=== PATIENT | female | born 1975 | race Caucasian/White ===

== ENCOUNTER 2022-09-28 02:50 | Emergency (ER) | payer OTHER, MEDICAID, SELFPAY ==
[2022-09-28 02:58] VITALS: BP 113/72; PULSE 76; RESP 20; TEMP 36.6; O2SAT 96; BMI 39.2
--- NOTE | 2022-09-28 03:06 | ED.GENADULT ---
HPI - General Adult General Chief complaint: Lower Extremity Swelling Stated complaint: swelling/pain right leg Time Seen by Provider: 09/28/22 03:06 History of Present Illness HPI narrative: 1630 yesterday bent down and pain in R knee, states swollen . tylenol and ice and rest, no improvement woke up in severe pain and came in. states now cramping in quad and [place] area, states worse to lay down. hx gastric bypass - states no ibuprofen. 46-year-old woman here with complaint of right leg pain and cramping. It sounds as though had flexed the right knee at some point yesterday with sudden onset of pain which has continued. To to experience some cramping in the surrounding musculature. Any movement hurts. Has tried acetaminophen icing without relief. She does not take ibuprofen or some due to history of gastric bypass. No pain radiating from the back. Later does recount a history of bilateral knee lateral release. Related Data Home Medications Medication Instructions Recorded Confirmed atorvastatin .ROUTE 09/28/22 citalopram .ROUTE 09/28/22 Allergies Allergy/AdvReac Type Severity Reaction Status Date / Time cephalexin [From Keflex] AdvReac Verified 09/28/22 03:01 Review of Systems Status of ROS: Reports: 6 or more systems reviewed and unremarkable except as noted in History and below PFSH PFS Surgical History (Updated 09/28/22 @ 03:02 by Genevieve Hart RN) History of gastric bypass ?Z98.84 - Bariatric surgery status (ICD-10) Social History Smoking Status: Never smoker How often do you have a drink containing alcohol: never AUDIT-C Alcohol total score: 0 Non-prescribed substance use: denies use Exam Narrative: Exam Narrative: Clearly appears uncomfortable. Moderate distress. Exacerbated with movement. Patella appears to be midline. There is moderate effusion about the patella. I do not appreciate a defect in the tendons of the biceps femoris. She is tender to palpation of the surrounding musculature but I also do not feel defect. Pain is limiting participation in strength testing but I believe strength to be intact. No laxity to varus or valgus stressors. I can not accomplish good Randolph's or Lizeth's at this point. Const: Vital Signs, click to edit/add: Vital Signs - 24 hr 09/28/22 02:58 09/28/22 03:42 Temperature 97.9 F Pulse Rate [Left P ulse Oximeter] 76 Respiratory Rate 20 Blood Pressure [Ri ght Upper Arm] 113/72 Pulse Oximetry 96 98 Oxygen Delivery Me thod Room Air Documenting provider has reviewed patient's vital signs: yes Course Vital Signs Vital signs: Initial Vital Signs Temperature 97.9 F 09/28/22 02:58 Temperature Source Temporal Artery Scan 09/28/22 02:58 Pulse Rate 76 09/28/22 02:58 Respiratory Rate 20 09/28/22 02:58 Blood Pressure 113/72 09/28/22 02:58 Blood Pressure Mean 85 09/28/22 02:58 Blood Pressure Position Standing 09/28/22 02:58 Pulse Oximetry 96 09/28/22 02:58 Oxygen Delivery Method Room Air 09/28/22 02:58 Vital Signs Temperature 97.9 F 09/28/22 02:58 Pulse Rate 76 09/28/22 02:58 Respiratory Rate 20 09/28/22 02:58 Blood Pressure 113/72 09/28/22 02:58 Pulse Oximetry 96 09/28/22 02:58 Oxygen Delivery Method Room Air 09/28/22 02:58 Temperature 98.1 F 09/28/22 04:12 Pulse Rate 69 09/28/22 04:12 Respiratory Rate 16 09/28/22 04:12 Blood Pressure 113/72 09/28/22 02:58 Pulse Oximetry 98 09/28/22 04:12 Oxygen Delivery Method Room Air 09/28/22 04:12 Medical Decision Making MDM Narrative Medical decision making narrative: Mechanism would suggest that there was not a large bony issue. I suppose there could be some spurring. There is history of obesity. May have contributed to a meniscal disruption. Possible muscle disruption as well. I suspect be what occurred was a subluxation/dislocation relocation of the patella. Reasonable to start with some basic x-ray imaging. I think we will just need some time to rest this knee with appropriate pain management. Trying injection of ketorolac and Dilaudid. Pain improved. Still with good deal of discomfort with movement. Also given ice pack. X-rays of the knee reviewed by me did not show acute bony abnormality. Appears to be an effusion present around the patella. Knee immobilizer dispensed. See patient discharge plan Discharge Plan Discharge Clinical Impression: Effusion of knee, Patellar subluxation, Anterior knee pain Patient Disposition: Home w/ Parent or Adult Condition: Improved Additional Instructions: I think probably what happened is your patella slipped a little bit and you had resulting leg spasm and even some effusion built up. I did not appreciate a muscular disruption like a quadricep tear. Though admittedly you are pretty sensitive and it is a little hard to examine at the moment. I do not see evidence of bony injury and your knee cap seems to be in the right place right now. I will let you know if Radiology sees anything more in the imaging. See handout on patellar subluxation for exercises/strengthening. I would probably wear this knee immobilizer over the next few days. Ice regularly also over the next few days; at least 3 times per day. Follow-up if not improved in a week or markedly worsening. Sc[place]ey and cyclobenzaprine from [facility]. Prescriptions: No Action citalopram .ROUTE atorvastatin .ROUTE Follow Up/Referrals: Provider,Not a Local [Primary Care Provider] - Stand Alone Forms: When You Wishth Info Instructions
--- NOTE | 2022-09-28 03:12 | CRLHL7_ITS ---
For Patients: As a result of the Century Cures Act, medical imaging exams and procedure reports are released immediately into your electronic medical record. You may view this report before your referring provider. If you have questions, please contact your health care provider. INDICATION: Right knee swelling and pain with movement. COMPARISON: None available. TECHNIQUE: The right knee was examined with AP, lateral, and sunrise views for a total of three views. FINDINGS: There is no sign of fracture or dislocation. The medial and lateral compartments are normal in height. There is a mild suprapatellar joint effusion. No soft tissue abnormality is seen. IMPRESSION: No sign of acute osseous injury. Mild suprapatellar joint effusion. Dictated by Omero Sharma MD @ 09/28/2022 3:56:18 AM (Electronically Signed)
[2022-09-28] MEDS: HYDROmorphone 0.5 mg/0.5 ml inj 1 MG IM (03:19)
[2022-09-28] MEDS: KETOROLAC 60 MG/2 ML inj IM (03:19)
[2022-09-28 03:42] VITALS: O2SAT 98
[2022-09-28 04:12] VITALS: PULSE 69; RESP 16; TEMP 36.7; O2SAT 98
== END 2022-09-28 04:16 | disposition home or self-care (01) ==
PROVIDERS: Emergency Provider Family Medicine
DX: M25.461 Effusion, right knee (principal)
CPT/HCPCS: 73562; 94761; 99283; 99284; J1170; J1885